=== PATIENT | female | born 1965 | race Hispanic/Latino ===

== ENCOUNTER 2016-11-06 13:44 | Emergency (ER) | payer BC ==
[2016-11-06 14:30] LABS: Basophils % (Auto) 0.8 % (0.0-1.8); Eosinophils % (Auto) 0.1 % (0.0-4.3); Hemoglobin 15.4 gm/dl (10.1-14.3); Mean Corpuscular HGB Conc 34 % (30-34); Mean Corpuscular Hemoglobin 31 pg (28-32); Mean Corpuscular Volume 90 fl (79-97); Platelet Count 293 K/mm3 (140-440); Red Blood Count 4.99 M/mm3 (3.65-5.03); Red Cell Distribution Width 13.4 % (13.2-15.2); White Blood Count 8.1 K/mm3 (4.5-11.0)
[2016-11-06 14:52] LABS: Bacteria,Urine 1+ /HPF (Negative); Bilirubin,Urine NEG (Negative); Blood,Urine SM (Negative); Ketones,Urine 80 mg/dL (Negative); Leukocyte Esterase,Urine NEG (Negative); Mucus,Urine 2+ /HPF; Nitrite,Urine NEG (Negative)
[2016-11-06] MEDS ORDERED: ZOFRAN IV ONE (15:21)
[2016-11-06] MEDS ORDERED: NACL 0.9% 1000 ML 1,000 ML IV ONE (15:21)
--- NOTE | 2016-11-06 15:29 | Emergency Department Report ---
ED N/V/D HPI - General Chief complaint: Chest Pain Stated complaint: VOMITING/BACK PAIN/POSS HEART ATTACK Time Seen by Provider: 11/06/16 15:17 Source: patient, EMS Mode of arrival: Stretcher Limitations: No Limitations - History of Present Illness MD complaint: nausea, vomiting -: Gradual Time: 15:23 Description of Vomiting: food contents, watery Description of Diarrhea: water, mucous Associated Abdominal Pain: No Radiation: none Severity: mild Quality: cramping Improves with: none Worsens with: none Associated Symptoms: nausea/vomiting. denies: myalgias, chest pain, cough, diaphoresis, headaches, loss of appetite, malaise, shortness of breath, syncope - Related Data Previous Rx's Medication Instructions Recorded Last Taken Type Ondansetron [Zofran Odt] 4 mg PO BID #12 tab.rapdis 11/06/16 Unknown Rx Allergies Allergy/AdvReac Type Severity Reaction Status Date / Time erythromycin base Allergy Unknown Verified 11/06/16 14:00 ED Review of Systems ROS: Stated complaint: VOMITING/BACK PAIN/POSS HEART ATTACK Other details as noted in HPI Comment: All other systems reviewed and negative ED Past Medical Hx - Past Medical History Previous Medical History?: No - Social History Smoking Status: Unknown if ever smoked - Medications Home Medications: Home Medications Medication Instructions Recorded Confirmed Last Taken Type Ondansetron [Zofran Odt] 4 mg PO BID #12 tab.rapdis 11/06/16 Unknown Rx ED Physical Exam - General Limitations: No Limitations General appearance: alert, in no apparent distress - Head Head exam: Present: atraumatic, normocephalic - Eye Eye exam: Present: normal appearance - ENT ENT exam: Present: mucous membranes moist - Neck Neck exam: Present: normal inspection - Respiratory Respiratory exam: Present: normal lung sounds bilaterally. Absent: respiratory distress - Cardiovascular Cardiovascular Exam: Present: regular rate, normal rhythm. Absent: systolic murmur, diastolic murmur, rubs, gallop - GI/Abdominal GI/Abdominal exam: Present: soft, normal bowel sounds. Absent: distended, tenderness, guarding, rebound - Extremities Exam Extremities exam: Present: normal inspection - Back Exam Back exam: Present: normal inspection - Neurological Exam Neurological exam: Present: alert, oriented X3 - Psychiatric Psychiatric exam: Present: normal affect, normal mood - Skin Skin exam: Present: warm, dry, intact, normal color. Absent: rash ED Course Vital Signs 11/06/16 11/06/16 11/06/16 13:55 13:59 14:31 Temperature 98.2 F Pulse Rate 98 H Respiratory 16 16 Rate Blood Pressure 136/110 Blood Pressure 128/84 [Right] O2 Sat by Pulse 96 96 Oximetry ED Medical Decision Making - Lab Data Result diagrams: 11/06/16 14:16 11/06/16 14:16 - EKG Data -: EKG Interpreted by Me EKG shows normal: sinus rhythm - EKG Data Interpretation: no acute changes - Medical Decision Making patient doing well, no complaints at this time, fluids and zofran given , will dc and follow up. Critical care attestation.: If time is entered above; I have spent that time in minutes in the direct care of this critically ill patient, excluding procedure time. ED Disposition Clinical Impression: Vomiting Disposition: DISCHARGED TO HOME OR SELFCARE Is pt being admited?: No Does the pt Need Aspirin: No Condition: Good Instructions: Acute Nausea and Vomiting (ED) Prescriptions: Ondansetron [Zofran Odt] 4 mg PO BID #12 tab.matt Referrals: PRIMARY CARE, [Primary Care Provider] - 3-5 Days Time of Disposition: 16:54
[2016-11-06 15:54] LABS: Anion Gap 24 mmol/L; BUN/Creatinine Ratio 53.75; Blood Urea Nitrogen 43 mg/dL (7-17); Calcium 9.8 mg/dL (8.4-10.2); Carbon Dioxide 22 mmol/L (22-30); Chloride 95.9 mmol/L (98-107); Cholesterol 235 mg/dL (50-199); Glucose 103 mg/dL (65-100); HDL Cholesterol 48 mg/dL (40-59); LDL Cholesterol,Direct 164 mg/dL (50-130); Potassium 3.5 mmol/L (3.6-5.0); Sodium 138 mmol/L (137-145); Triglycerides 118 mg/dL (2-149)
[2016-11-06 17:37] VITALS: BP 121/71
== END 2016-11-06 17:36 | disposition home or self-care (01) ==
LOC: ED 13:44
DX: R11.2 Nausea with vomiting, unspecified (principal); Z88.1 Allergy status to other antibiotic agents
CPT/HCPCS: 36415; 80048; 80061; 81001; 84484; 85025; 93005; 93010; 96361; 96374; 99285; J2405; J7030